=== PATIENT | female | born 1955 | race Two or more races ===

== ENCOUNTER 2018-05-21 07:50 | Day surgery (SDC) | payer OTHER ==
[~2018-05-21] VITALS: Ht 157.5 cm; Wt 121.3 kg
[2018-05-21] VITALS (12 sets, daily range): BP systolic 86–129; BP diastolic 49–73; PULSE 67–76; RESP 14–18; Ht 157.5 cm; Wt 121.3 kg
[2018-05-21] MEDS ORDERED: CEFAZOLIN 2 GM/50 ML (PMX) 50 ML IVPB ONE (09:00)
[2018-05-21] MEDS ORDERED: SOD CHLORIDE 0.9% 1,000 ML IV SCH (09:00)
[2018-05-21] MEDS ORDERED: ACETAMINOPHEN 500 MG TAB PO ONE (10:00)
[2018-05-21] MEDS ORDERED: HYDR25TA6 PO (10:04)
[2018-05-21] MEDS ORDERED: ATOR40TA68 PO (10:05)
[2018-05-21] MEDS ORDERED: METO-448 PO (10:05)
[2018-05-21] MEDS ORDERED: PROPOFOL 40 ML ONE (11:34)
[2018-05-21] MEDS ORDERED: FENTAnyl 50 MCG/ML VIAL ONE (11:34)
[2018-05-21] MEDS ORDERED: FAMOTIDINE 20 MG INJ ONE (11:34)
[2018-05-21] MEDS ORDERED: LIDOCAINE 2% (SDV) 5 ML INJ ONE (11:34)
[2018-05-21] MEDS ORDERED: CEFAZOLIN 1 GM INJ ONE (11:34)
[2018-05-21] MEDS ORDERED: ONDANSETRON 4 MG INJ ONE (11:34)
[2018-05-21] MEDS ORDERED: MIDAZOLAM 1 MG/ML 2 ML INJ ONE (11:34)
[2018-05-21] MEDS ORDERED: LIDOCAINE 1%/EPI (1:100,000) (MDV) 20 ML ONE ×2 (12:44)
[2018-05-21] MEDS ORDERED: LIDOCAINE 1%/EPI 30 ML INJ INJ ONE (12:55)
--- NOTE | 2018-05-21 12:55 | PREAC ---
Date/Time of Note Date/Time of Note DATE: 05/21/18 TIME: 12:52 Anesthesia Eval and Record Evaluation Time Pre-Procedure Interview DATE: 05/21/18 TIME: 12:52 Age 62 Sex female NPO: 8 hrs Preoperative diagnosis R breast mass Planned procedure R partial mastectomy w/ needle loc Past Medical History Past Medical History: Includes Cardio: HTN, Arrythmia (AFIB) Musculoskeletal: Osteoarthritis Surgery & Anesthesia Issues No known issue Meds Anticoagulation: No Beta Ravinder within 24 hr: Yes Reported Medications Atorvastatin* (Atorvastatin*) 40 Mg Tablet, 40 MG PO QHS, #30 TAB 05/21/18 Metoprolol Tartrate* (Lopressor*) 25 Mg Tab, 25 MG PO BID, #60 TAB 05/21/18 Hydrochlorothiazide* (Hydrochlorothiazide*) 25 Mg Tab, 25 MG PO DAILY, #30 TAB 05/21/18 Current Medications Sodium Chloride 1,000 ml @ 75 mls/hr [id number] IV ; Start 05/21/18 at 09:00; Stop 05/21/18 at 22:19 Meds reviewed: Yes Allergies Coded Allergies: No Known Drug Allergies (Unverified Allergy, Unknown, 05/21/18) Allergies Reviewed: Yes Labs/Studies Labs Reviewed: Reviewed by anesthesiologist test: N/A Studies: ECG (nml ecg, nsr), CXR (nad) Pre-procedure Exam Last vitals Vital Signs Date Temp Pulse Resp B/P (MAP) Pulse Ox O2 O2 Flow FiO2 Time Delivery Rate 05/21/18 97.8 11:02 05/21/18 67 18 129/73 96 Room Air 10:43 (91) Airway: Adequate mouth opening, Adequate thyromental dist Mallampati: Mallampati III Teeth: Normal Lung: Normal Heart: Normal ASA Physical Status ASA physical status: 3 Emergency: None Planned Anesthetic General/MAC: LMA, MAC Pre-operative Attestations Prior to commencing anesthesia and surgery, the patient was re-evaluated, there was verification of: *The patient's identity *The results of appropriate recent lab work and preoperative vital signs *The above evaluation not changing prior to induction *Anesthetic plan, risk benefits, alternative and complications discussed with patient/family; questions answered; patient/family understands, accepts and wishes to proceed. Blanker Press Operator used RICARDO PIERRE May 21, 2018 12:55
[2018-05-21] MEDS ORDERED: KETAMINE (50 MG/ML) 10 ML VIAL ONE (12:59)
[2018-05-21] MEDS ORDERED: GLYCOPYRROLATE 0.4 MG INJ ONE (12:59)
[2018-05-21] MEDS ORDERED: FENTAnyl 50 MCG/ML VIAL IV PRN ×2 (13:00)
[2018-05-21] MEDS ORDERED: OXYCODONE/ACETAMINOPHEN (5/325) TAB PO PRN ×2 (13:00)
[2018-05-21] MEDS ORDERED: HYDROmorphONE 1 MG/5 ML IV SYRINGE IV PRN ×2 (13:00)
[2018-05-21] MEDS ORDERED: LABETALOL HCL 20MG INJ IV PRN (13:00)
[2018-05-21] MEDS ORDERED: morphine (1 MG/ML) 10ML SYRINGE IV PRN ×2 (13:00)
[2018-05-21] MEDS ORDERED: DIPHENHYDRAMINE 50 MG INJ IV PRN (13:00)
[2018-05-21] MEDS ORDERED: ALBUTEROL 0.083% (NEB) 2.5 MG/3 ML AMP HHN PRN (13:00)
[2018-05-21] MEDS ORDERED: MEPERIDINE 25 MG INJ IV PRN (13:00)
[2018-05-21] MEDS ORDERED: ONDANSETRON 4 MG INJ IV PRN (13:00)
--- NOTE | 2018-05-21 13:53 | SIPON ---
Date/Time of Note Date/Time of Note DATE: 05/21/18 TIME: 13:52 Operative Report Preoperative Diagnosis Atypical ductal hyperplasia right breast Postoperative Diagnosis Same Operation/Procedure Performed Right needle directed partial mastectomy Surgeon see signature line real estate executive assistant Dr Colon Anesthesia: general Estimated blood loss: 10 - 50 ml's Transfusion Required none Specimen Right partial mastectomy specimen Grafts/Implants none Complications none SAMPSON RAMSAY MD May 21, 2018 13:53
--- NOTE | 2018-05-21 13:58 | PAC ---
Date/Time of Note Date/Time of Note DATE: 05/21/18 TIME: 13:57 Post-Anesthesia Notes Post-Anesthesia Note Last documented vital signs Vital Signs Date Temp Pulse Resp B/P (MAP) Pulse Ox O2 O2 Flow FiO2 Time Delivery Rate 05/21/18 97.8 11:02 05/21/18 98.1 75 18 99/64 100 face mask 8L 1350 Activity: WNL Respiratory function: WNL Cardiovascular function: WNL Mental status: Baseline Pain reasonably controlled: Yes Hydration appropriate: Yes Nausea/Vomiting absent: Yes RICARDO PIERRE May 21, 2018 13:57
[2018-05-21] MEDS ORDERED: HYDROCODONE/APAP (7.5/325) TAB PO PRN ×2 (14:00)
--- NOTE | 2018-05-21 14:22 | OPR ---
DATE OF OPERATION: 05/21/2018 PREOPERATIVE DIAGNOSIS: Atypical ductal hyperplasia, right breast, rule out cancer. POSTOPERATIVE DIAGNOSIS: Atypical ductal hyperplasia, right breast, rule out cancer. OPERATION PERFORMED: Right needle-directed partial mastectomy. ANESTHESIA: General. ANESTHESIOLOGIST: Nurse roustabout crew pusher, Elsie Velasquez. SURGEON: Joseu Nicole MD PRODUCT SAFETY LEAD: Fabrizio Bro MD. INDICATIONS FOR PROCEDURE: The patient is a 62-year-old female who underwent screening mammography, found to have a suspicious lesion in her right breast. Biopsy confirmed atypical ductal hyperplasia and complete surgical excision was recommended. She consented and was scheduled for surgery. DESCRIPTION OF PROCEDURE: On the morning of surgery, the patient presented to [facility] [place] [facility] where she underwent localization of the lesion performed by attending radiolog ist, Dr. Blayne Olea. Subsequently, she was brought to the operating theater, placed under IV se dation. The right breast was prepped and draped in usual sterile fashion. The area around the local ization needle was then widely infiltrated with 1% lidocaine local anesthetic with epinephrine. A cu rvilinear incision was made in the upper outer quadrant in the region of the previously placed locali zation wire. Subcutaneous tissue was dissected with cautery. The skin edges were elevated with skin hooks and wide circumferential dissection of the tissue associated with the wire then took place, ta dereck great care to ensure adequate margin. Specimen was then elevated, transected, oriented, and sen t for radiographic confirmation of capture. Capture was confirmed. Specimen was then sent for perma nent pathologic analysis. The wound was irrigated. Residual bleeding was controlled with cautery. The skin was then closed with 4-0 Vicryl suture in subcuticular fashion. Dermabond was applied. Pat ient tolerated procedure well. The estimated blood loss was approximately 20 mL. There were no comp lications and the patient was transported in stable condition to the recovery room where circumferent ial compression dressing was applied. Dictated By: JOSUE NICOLE MD TL/NTS Conf#: [id number] DID#: [id number] CC: FABRIZIO BRO MD;*EndCC*
== END 2018-05-21 15:24 | disposition home or self-care (01) ==
LOC: SDS 07:50
PROVIDERS: ATTEND Surgery Surgical Oncology
DX: D24.1 Benign neoplasm of right breast (principal); N60.91 Unspecified benign mammary dysplasia of right breast; I10 Essential (primary) hypertension; I48.91 Unspecified atrial fibrillation
CPT/HCPCS: 19301; J0690; J2250; Z7512; Z7610; 88307; 88341; 88342; J2405; J3010